=== PATIENT | female | born 1990 | race African-American/Black ===

== ENCOUNTER 2018-11-22 07:46 | Inpatient (IN) | payer OTHER ==
[~2018-11-22] VITALS: Ht 170.2 cm; Wt 98.7 kg
[2018-11-22 08:21] VITALS: Ht 170.2 cm; Wt 98.7 kg
[2018-11-22 08:22] VITALS: BP 115/75; PULSE 101; RESP 18
[2018-11-22] MEDS ORDERED: LACTATED RINGER'S 1,000 ML IV PRN (08:55)
[2018-11-22] MEDS ORDERED: OXYTOCIN 30 UNITS/LR 500 ML IV PRN (09:00)
[2018-11-22] MEDS ORDERED: OXYTOCIN 30 UNITS/LR 500 ML IV SCH ×2 (09:00)
[2018-11-22] MEDS ORDERED: CARBOPROST 250 MCG INJ IM PRN (09:00)
[2018-11-22] MEDS ORDERED: METHYLERGONOVINE 0.2 MG INJ IM PRN (09:00)
[2018-11-22] MEDS ORDERED: LIDOCAINE 1% (MPF) 30 ML INJ INJ PRN (09:00)
[2018-11-22] MEDS ORDERED: IBUPROFEN 600 MG TAB PO PRN (09:00)
[2018-11-22] MEDS ORDERED: MISOPROSTOL 200 MCG TAB PR PRN (09:00)
[2018-11-22] MEDS ORDERED: MINERAL OIL LIGHT 10 ML VIAL TOP ONE (09:00)
[2018-11-22] MEDS: LACTATED RINGER'S 1,000 ML IV SCH ×3 (10:01→22:41)
[2018-11-22] MEDS: MISOPROSTOL 50 MCG CAPSULE PO SCH ×3 (10:38→18:29)
--- NOTE | 2018-11-22 17:20 | HP ---
Date/Time of Note Date/Time of Note DATE: 11/22/18 TIME: 17:19 OB - History Hx of Present Free Text/Dictation 28-year-old female 2 para 1 and 39 weeks and 1 day gestation admitted for induction of labor Last Menstrual Period: Feb 10, 2018 Estimated Due Date: Nov 28, 2018 : 2 Para: 1 Care: Good Care Ultrasounds: Normal mid trimester US Obstetrical Complications: None Medical Complications: None Past Family/Social History * Past Medical, Surgical, Family and Obstetric Histories reviewed from chart. Blood Type: O+ Rubella: immune RPR/VDRL: Negative GBS Status: Negative HBsAG: Negative OB Admission Exam Vital Signs Vital Signs Vital Signs Date Temp Pulse Resp B/P (MAP) Pulse Ox O2 O2 Flow FiO2 Time Delivery Rate 11/22/18 97.8 101 18 115/75 Room Air 08:22 (88) Physical Exam HEENT: WNL Heart: Rhythm Normal Lungs: Clear, Equal Abdomen: WNL Extremities: Normal Reflexes: Normal Cervical Dilatation: None Effacement: 0% Station: -3 Membranes: Intact Heart Rate: 140's Accelerations: Accelerations Present Decelerations: No Decelerations Varibility: Marked Contractions on Admission: None Last 72 hours Lab Results CBC & BMP 11/22/18 08:50 OB Assessment/Plan Reason for admission: induction of labor Other Assessment: Term gestation admitted for induction of labor Other plan: Use Cytotec for induction of labor MARLEN MARIANO MD Nov 22, 2018 17:20
[2018-11-22] MEDS: BUTORPHANOL 2 MG INJ IV PRN ×2 (18:32→23:20)
[2018-11-23] MEDS ORDERED: FENTAnyl 2MCG/ML-ROPIV 0.2% 100 ML ONE (05:22)
[2018-11-23] MEDS: LACTATED RINGER'S 1,000 ML IV SCH (06:27)
--- NOTE | 2018-11-23 11:48 | LDN ---
Date/Time of Note Date/Time of Note DATE: 11/23/18 TIME: 11:31 Delivery Summary Normal spontaneous vaginal delivery of a viable infant over intact perineum Weeks of Gestation 39+ weeks Placenta Delivered: Spontaneously, Intact & Complete Meconium: Thick Episiotomy: No Perineal laceration: 1 Laceration repair: Superficial perineal laceration was repaired in layers using 3-0 chromic on small half needle Small periurethral laceration was repaired using 4-0 chromic on a small half needle running stitch Anesthesia type: Epidural Estimated blood loss: 200 Sponge & Needle done & correct: Yes All needle counts correct: Yes Any foreign bodies felt in the: No Infant Delivery Information Sex Sex: male Apgars 1 Minute: 9 5 Minute: 9 Suctioning Nose & mouth suctioned at sebastien: Yes Delee suction performed: No Umbilical Cord Umbilical cord with: 3 Vessels Cord presentations: nuchal cord Nuchal cord present X: 1 Cord Blood was obtained: Yes Mother & Baby Disposition Disposition Mom & Baby to Maternity; Good: Yes (Mother and baby were recovered in good con dition) Mom transferred to: Other (Maternity floor) Baby to NICU: No MARLEN MARIANO MD Nov 23, 2018 11:41
[2018-11-23] MEDS ORDERED: ACETAMINOPHEN 500 MG TAB PO STA (11:49)
[2018-11-23] MEDS ORDERED: KETOROLAC 30 MG INJ IV STA (11:49)
[2018-11-23 15:20] VITALS: BP 131/85; PULSE 85; RESP 16
[2018-11-23] MEDS ORDERED: LACTATED RINGER'S 1,000 ML IV* SCH (16:00)
[2018-11-23] MEDS ORDERED: DIBUCAINE 1% 30 GM OINT TOP PRN (16:00)
[2018-11-23] MEDS ORDERED: OXYTOCIN 30 UNITS/LR 500 ML IV PRN (16:00)
[2018-11-23] MEDS ORDERED: CARBOPROST 250 MCG INJ IM PRN (16:00)
[2018-11-23] MEDS ORDERED: HYDROCODONE/APAP (5/325) TAB PO PRN (16:00)
[2018-11-23] MEDS ORDERED: MISOPROSTOL 200 MCG TAB PR PRN (16:00)
[2018-11-23] MEDS ORDERED: METHYLERGONOVINE 0.2 MG INJ IM PRN (16:00)
[2018-11-23] MEDS ORDERED: BENZOCAINE 20% 56 ML SPRAY TOP PRN (16:00)
[2018-11-23] MEDS ORDERED: ZOLPIDEM 5 MG TAB PO PRN (16:00)
[2018-11-23] MEDS ORDERED: WITCH HAZEL/GLYCERIN PAD PR PRN (16:00)
[2018-11-23] MEDS ORDERED: LANOLIN HPA 1 PKT TOP PRN (16:00)
[2018-11-23 16:20] VITALS: BP 123/74; PULSE 91; RESP 16
[2018-11-23 17:20] VITALS: BP 119/79; PULSE 89; RESP 17
[2018-11-23 17:24] VITALS: BP 110/59; PULSE 72; RESP 18
[2018-11-23] MEDS: IBUPROFEN 600 MG TAB PO SCH ×2 (18:49→23:42)
[2018-11-23] MEDS: CEPHALEXIN 500 MG CAP PO SCH ×2 (18:49→23:42)
[2018-11-23 21:00] VITALS: BP 124/84; PULSE 90; RESP 19
[2018-11-23] MEDS: SENNA/DOCUSATE NA (8.6MG/50MG) TAB PO SCH (21:00)
[2018-11-23] MEDS: MAGNESIUM HYDROXIDE 30ML CUP PO SCH (21:00)
[2018-11-24 04:15] VITALS: BP 126/81; PULSE 84; RESP 19
[2018-11-24] MEDS: IBUPROFEN 600 MG TAB PO SCH ×4 (05:50→23:53)
[2018-11-24] MEDS: CEPHALEXIN 500 MG CAP PO SCH ×4 (05:50→23:53)
[2018-11-24 08:30] VITALS: BP 125/76; PULSE 84; RESP 16
[2018-11-24] MEDS: MAGNESIUM HYDROXIDE 30ML CUP PO SCH ×2 (08:35→21:23)
[2018-11-24] MEDS: HYDROCODONE/APAP (5/325) TAB PO PRN ×2 (08:35→18:06)
[2018-11-24] MEDS: SENNA/DOCUSATE NA (8.6MG/50MG) TAB PO SCH ×2 (08:35→21:22)
[2018-11-24 16:05] VITALS: BP 121/77; PULSE 94; RESP 18
--- NOTE | 2018-11-24 18:36 | DS ---
Date/Time of Note Date/Time of Note Home today or next day DATE: 11/24/18 TIME: 18:35 Obstetrical Discharge Record Final Diagnosis Final Diagnosis: Term delivered Other Final Diagnosis Status post vaginal delivery Vaginal Delivery Obstetrical Delivery: Spontaneous, Laceration, Repaired Complications Augmentation: Yes Induction: Yes Condition on Discharge Physical Assessment Last Vitals: See nurse's notes Voiding: Yes Bowel Movement: Yes Breast: Soft, non-tender, Filling Fundus: Firm Abdomen and Incision: Abdomen is soft with firm fundus Episiotomy: Perineum is healing well and appears clean Calf Tenderness: No Patient Condition: Good MARLEN MARIANO MD Nov 24, 2018 18:36
--- NOTE | 2018-11-24 18:37 | PD.PPDC ---
CRUISE DIRECTOR Discharge Instruction Provider Information Physician Information 38-year-old female had vaginal delivery Diagnosis [id number] Final Diagnosis: Yemke3a Status post vaginal delivery Condition [id number] Patient Condition: Vjkdt9i Good Diet [id number] Diet: Qcurp9q Resume Regular Diet Activity/Restrictions [id number] Activity: Vnzha6u Normal Activity May Shower [id number] Restrictions: Wkcos5x Nothing in the Vagina [id number] Return to Work or School: [id number] Jan 10, 2019 Follow-up Follow-up with Physician: 2, 4, Week/Weeks (In clinic) Return to clinic for [id number] OB Instructions: Yycrt7r Breast Tenderness Depression Comment: Pelvic rest for 6 weeks MARLEN MARIANO MD Nov 24, 2018 18:37
[2018-11-24] MEDS ORDERED: IBUP-1542 PO (18:38)
[2018-11-24 19:40] VITALS: BP 117/73; PULSE 86; RESP 18
[2018-11-25] MEDS: HYDROCODONE/APAP (5/325) TAB PO PRN (00:40)
[2018-11-25 03:40] VITALS: BP 112/75; PULSE 82; RESP 19
[2018-11-25] MEDS: CEPHALEXIN 500 MG CAP PO SCH ×2 (05:46→12:00)
[2018-11-25] MEDS: IBUPROFEN 600 MG TAB PO SCH ×2 (05:46→12:00)
[2018-11-25 08:00] VITALS: BP 124/85; PULSE 72; RESP 18
[2018-11-25] MEDS ORDERED: DIPHTH/TET/ACEL PERTUSS (ADULT) 0.5 ML VIAL IM* ONE (09:00)
[2018-11-25] MEDS ORDERED: VARICELLA VACCINE LIVE/PF 1,350 UNIT/0.5 ML ML SC* ONE (09:00)
[2018-11-25] MEDS: MAGNESIUM HYDROXIDE 30ML CUP PO SCH (09:00)
[2018-11-25] MEDS: SENNA/DOCUSATE NA (8.6MG/50MG) TAB PO SCH (09:00)
[2018-11-25] MEDS ORDERED: MEASLES,MUMPS,RUBELLA VACCINE INJ SC* ONE (09:00)
--- NOTE | 2018-11-26 16:08 | DELSUM ---
Delivery Summary A-C Datetime Report Generated by CPN: 11/26/2018 16:08 DELIVERY PERSONNEL It Business Process Architect: Bain, [place] MATERNAL INFORMATION Delivery Anesthesia: Epidural Medications in Delivery: pitocin Delivery QBL (ml): 250 Placenta Cultured: No Maternal Complications: None LABOR SUMMARY EDC: 11/28/2018 00:00 No. Babies in Womb: 1 Attempted: No Labor Anesthesia: Epidural LABOR INFORMATION Reason for Induction: Other Reason for Induction- Other: elective induction Onset of Labor: 11/22/2018 07:00 Complete Dilatation: 11/23/2018 10:47 Cervical Ripening Agents: Cytotec @ 50 Group B Beta Strep: Negative Antibiotics # of Doses: 0 Steroids Given: None Reason Steroids Not Administered: Not Applicable MEMBRANES Membranes Rupture Method: Spontaneous Rupture of Membranes: 11/23/2018 10:15 Length of Rupture (hr): 0.68 Amniotic Fluid Color: Heavy Meconium Amniotic Fluid Amount: Moderate Amniotic Fluid Odor: Normal STAGES OF LABOR Stage 1 hr: 27 Stage 1 min: 47 Stage 2 hr: 0 Stage 2 min: 9 Stage 3 hr: 0 Stage 3 min: 2 Total Time in Labor hr: 27 Total Time in Labor min: 58 VAGINAL DELIVERY Laceration Extension: First Degree Laceration Type: Perineal Laceration Repair: Yes Initial Vag Sponge Count: 10 Final Vag Sponge Count: 10 Initial Vag Sharps Count: 1 Final Vag Sharps Count: 3 Sponge Count Correct: Yes; Vaginal Sweep Performed Sharps Count Correct: Yes Count Comment: 2 sharps added BABY A INFORMATION Infant Delivery Date/Time: 11/23/2018 10:56 Method of Delivery: Vaginal Born in Route : No : N/A Forceps: N/A Vacuum Extraction: N/A Shoulder Dystocia : No SHOULDER DYSTOCIA BABY A Delivery Date/Time: 11/23/2018 10:56 PRESENTATION/POSITION BABY A Presentation: Cephalic Cephalic Presentation: Vertex Breech Presentation: N/A PLACENTA INFORMATION BABY A Placenta Delivery Time : 11/23/2018 10:58 Placenta Method of Delivery: Spontaneous Placenta Status: Delivered SCORES BABY A Heart Rate 1 min: >100 bpm Resp Effort 1 min: Good Cry Reflex Irritability 1 min: Cough/Sneeze/Pulls Away Muscle Tone 1 min: Active Motion Color 1 min: Blue/Pale Resuscitation Effort 1 min: Tactile Stimulation SCORE 1 MIN: 8 Heart Rate 5 min: >100 bpm Resp Effort 5 min: Good Cry Reflex Irritability 5 min: Cough/Sneeze/Pulls Away Muscle Tone 5 min: Active Motion Color 5 min: Body Vayas, Extremit Blue SCORE 5 MIN: 9 INFANT INFORMATION BABY A Gestational Age at Delivery: 39.2 Gestational Status: Full Term- 39- 40.6 Weeks Outcome : Liveborn, with signs of life Condition : Stable Sex: Male IDENTIFICATION/MEDS BABY A ID Band Number: [id number] Sensor Number: [id number] WEIGHT/LENGTH BABY A Birthweight (gm): 3650 Infant Weight (lb): 8 Infant Weight (oz): 1 Length (in): 20.00 Infant Length (cm): 50.80 CORD INFORMATION BABY A No. Cord Vessels: 3 Nuchal Cord : Around Neck x1, Loose Suction: Mouth; Nose ASSESSMENT BABY A Complications: Meconium Physical Findings at Delivery: Within Normal Limits Infant Respirations: Appears Normal Vacuum Filter Operator/ALS Called : No Infant Care By: /CLARA RNC Transferred To: Remains with Mother
== END 2018-11-25 13:10 | disposition home or self-care (01) | DRG 807 ==
LOC: L-D 07:46 → PP1 11-23 15:12
PROVIDERS: ADMIT Obstetrics & Gynecology; ATTEND Obstetrics & Gynecology
PROC: 10E0XZZ Delivery of Products of Conception, External Approach (ICD-10-PCS; principal; 2018-11-23)
PROC: 0HQ9XZZ Repair Perineum Skin, External Approach (ICD-10-PCS; 2018-11-23)
PROC: 3E033VJ Introduction of Other Hormone into Peripheral Vein, Percutaneous Approach (ICD-10-PCS; 2018-11-23)
DX: O70.0 First degree perineal laceration during delivery (principal); Z37.0 Single live birth; O69.81X0 Labor and delivery complicated by cord around neck, without compression, not applicable or unspecified; Z3A.39 39 weeks gestation of pregnancy
CPT/HCPCS: 62322; 76815; 85025; 85610; 85730; 86592; 86850; 86900; 86901; 87340; 90716; J0595; J1885; J2590; J3010; J7120